=== PATIENT | male | born 1995 | race Caucasian/White ===

== ENCOUNTER → 2018-08-26 18:14 | Outpatient (CLI) | payer OTHER, SELFPAY | PROVIDERS: Visit Provider Specialist | DX: M54.5 Low back pain (principal) ==

== ENCOUNTER → 2018-08-26 18:34 | Outpatient (CLI) | payer OTHER, SELFPAY ==
--- NOTE | 2018-08-26 18:37 | DI.RAD.S_ITS ---
PROCEDURE: XR LUMBAR SPINE 2-3V INDICATIONS: BACK PAIN TECHNIQUE: 3 views of the lumbar spine were acquired. COMPARISON: None. FINDINGS: Bones: 5 [id number] vertebrae are present. There is normal bony alignment. No vertebral body compression fractures. No suspicious bony lesions. Intervertebral disc heights are normally preserved at all levels. Soft tissues: Overlying bowel gas pattern is normal. No suspicious soft tissue calcifications. IMPRESSION: No fracture. No osseous lesion. If there are persistent symptoms or continued clinical suspicion for pathology, then MRI should be considered for further evaluation. Dictated by: Tameka Zhang MD, PhD on 08/26/2018 at 19:19 Approved by: Tameka Zhang MD, PhD on 08/26/2018 at 19:19
== END ==
PROVIDERS: Visit Provider Specialist
DX: M54.5 Low back pain (principal)
CPT/HCPCS: 72100